=== PATIENT | female | born 1985 | race Caucasian/White ===

== ENCOUNTER 2017-03-28 19:52 | Emergency (ER) | payer BC ==
[~2017-03-28] VITALS: Ht 154.9 cm; Wt 70.0 kg
[2017-03-28 19:58] VITALS: TEMP 36.7; Ht 154.9 cm; Wt 70.0 kg
[2017-03-28] MEDS ORDERED: MULT-513 PO (20:43)
[2017-03-28] MEDS ORDERED: LEVO100T PO (20:43)
[2017-03-28] MEDS ORDERED: IBUPROFEN 600 MG TAB PO STA (20:48)
--- NOTE | 2017-03-28 20:56 | DIAGNOSTIC IMAGING REPORT ---
LEFT ANKLE MIN 3 VIEWS ROUTINE CLINICAL HISTORY: fall; L ankle pain pain COMPARISON: None. DISCUSSION: The bones and joint spaces appear intact. There is no evidence of fracture, dislocation or bony disease. Moderate lateral soft tissue edema. Small heel spur. IMPRESSION: No acute bony abnormality. Mild soft tissue edema. The above report was generated using voice recognition software. It may contain grammatical, syntax or spelling errors. Electronically signed by: Rashi Ramirez M.D. 03/28/2017 8:55 PM Dictated Date/Time: 03/28/2017 8:54 PM
[2017-03-28 21:17] VITALS: BP 120/82; PULSE 110; O2SAT 99
--- NOTE | 2017-03-29 16:27 | EMERGENCY ROOM VISIT NOTE ---
ED Visit Note First contact with patient: 20:27 Chief Complaint: Left ankle pain. History of Present Illness: Ms. Ackerman is a 31-year-old white female who is brought into the ED via wheelchair accompanied by multiple female friends complaining of lateral left ankle pain. Patient reports approximately one hour ago she was climbing up a tree and when she attempted to get down and she fell approximately 1 foot twisting her ankle in an inverted position. Since that time she has had pain predominantly over the lateral aspect of the ankle. Currently she describes her pain as a sharp and throbbing sensation. She rates her discomfort 7/10. The pain is nonradiating. The pain worsens with palpation , ambulation, plantar flexion and inversion. She has not identified any alleviating factors related to the pain. She has not taken any medications for pain prior to arrival at the hospital. So she had with her pain patient did report her toes felt slightly numb. Additionally she denies any previous significant injuries or surgeries. Review of Systems: As noted above in history of present illness. 5 body systems were reviewed and found to be negative as noted above. Past Medical History: Asthma, hypothyroidism, status post cholecystectomy and ectopic . Current Medications: Synthroid and multivitamins. Allergies to Medications: Iodine. Social History: Patient is currently employed; she feels safe in her home environment; she denies tobacco use; she admits to alcohol use. Physical Examination: Vital Signs: Date Time Temp Pulse Resp B/P (MAP) Pulse Ox O2 Delivery O2 Flow Rate FiO2 03/28/17 21:17 110 20 120/82 99 03/28/17 19:58 36.7 88 16 115/43 96 Room Air GENERAL: 31-year-old female in mild to moderate distress due to pain, nontoxic- appearing, afebrile and hemodynamically stable. NEUROLOGICAL: Awake, alert and oriented to person, place and time. Answering questions appropriately and following commands. SKIN: Warm, dry and pink. No soft tissue trauma noted. LEFT LOWER EXTREMITY: No gross bony deformity. No shortening or malrotation. No tenderness in the hip, knee or proximal lower leg or foot. Moderate tenderness over the lateral malleolus predominately over the inferior structures associated with moderate swelling. There is no ecchymosis. Additionally there is tenderness over the medial aspect of the ankle inferior to the malleolus also without swelling. Ligamentous testing shows no acute laxity in any of the ligamentous structures of the ankle. Full range of motion in plantar flexion, dorsiflexion and inversion and eversion of the ankle. 4/5 muscle strength in all movements. Throughout the foot the skin was warm and pink and capillary refill is brisk. She is able to distinguish light sensations through all dermatomes. ED Course: Patient is assessed as noticed above. Patient's medication list was reviewed. Patient was given ice and 600 mg of ibuprofen by mouth for pain. Left ankle x-rays: Were read by myself and the radiologist and shows no acute fractures or dislocations and moderate lateral soft tissue swelling. Patient was placed in a gel splint and on nonweightbearing crutches. Patient was educated about today's findings and instructed on her treatment plan ; she verbalizes understanding and agreement with this plan. Clinical Impression: Left ankle sprain. Disposition: A shunt discharged home in stable condition accompanied by multiple female friends; prior to departure she was reassessed and subjectively reported she was feeling slightly better and rated her discomfort 5/10. Plan: Comfort measures were discussed with the patient. Patient is encouraged to follow-up with orthopedics if no better in 7-10 days. Patient was encouraged return ED for worsening/uncontrolled pain, uncontrolled swelling him a foot weakness/numbness/tingling or any new/concerning symptoms.
== END 2017-03-28 21:19 | disposition home or self-care (01) ==
LOC: C.EDB 19:54 → C.EDD 21:19
DX: S93.402A Sprain of unspecified ligament of left ankle, initial encounter (principal); W14.XXXA Fall from tree, initial encounter; Y92.89 Other specified places as the place of occurrence of the external cause; J45.909 Unspecified asthma, uncomplicated; E03.9 Hypothyroidism, unspecified; Z79.899 Other long term (current) drug therapy